=== PATIENT | male | born 1965 | race African-American/Black ===

== ENCOUNTER 2020-01-14 19:43 | Emergency (ER) | payer MEDICAID, SELFPAY ==
[2020-01-14 19:47] VITALS: BP 153/95; PULSE 69; RESP 18; TEMP 36.7; O2SAT 98
[2020-01-14 19:57] LABS: Glucose Point of Care 432 (65-105)
--- NOTE | 2020-01-14 20:05 | ED.RECABL ---
HPI - Recheck/Abnormal Lab/Rx General Chief Complaint: Recheck/Abnormal Lab/Rx Stated Complaint: High blood sugar Time Seen by Provider: 01/14/20 19:58 Source: RN notes reviewed History of Present Illness HPI narrative: Patient presents emergency room from home for hyperglycemia. Patient states his blood sugars have been running in the 400s for the past 3 days. is currently on [id number] twice daily she last took this morning. He states he does not have a regular primary care physician but it sounds like his medications are normally filled after he goes to different hospitals. He denies any recent illness denies any fevers or chills chest pain shortness of breath nausea vomiting or diarrhea. He states he has had frequent urination and aching in his joints Related Data Allergies Allergy/AdvReac Type Severity Reaction Status Date / Time No Known Allergies Allergy Verified 01/14/20 21:36 Review of Systems Review of Systems: Narrative: Gen.: Denies fevers or chills ENT: Denies congestion Respiratory: Denies shortness of breath or cough CV: Denies chest pain or palpitations GI: Denies abdominal pain nausea, emesis or diarrhea reports frequent urination Musculoskeletal: Denies back pain or muscle pain Neuro: Denies numbness, tingling, weakness or focal weakness Skin: Denies rash Endocrine: Lymph nodes hyperglycemia Except as documented, all other systems reviewed and negative FORMERLY [facility] Past Medical History Medical History (Updated 01/14/20 @ 22:35 by Sebas Goldstein DO) Diabetes mellitus Social History Social History (Updated 01/14/20 @ 20:06 by Sebas Goldstein DO) Smoking status: Never smoker Exam Narrative: Exam Narrative: APPEARANCE: No acute distress, nontoxic, resting in bed EYES: EOMI HEENT: Normocephalic, atraumatic, OMM RESPIRATORY: No respiratory distress Clear to auscultation bilaterally with no rhonchi wheezing or rales. CARDIOVASCULAR: Regular rate and rhythm without murmurs rubs or gallops. ABDOMINAL: Soft, nontender, nondistended, no rebound or guarding MUSCULOSKELETAl: Moves all extremities. No clubbing, cyanosis or edema. NEURO: Awake and alert. Following commands, speech normal, no focal deficits SKIN:: Warm, dry. No rashes lesions or abrasions PSYCHIATRIC: Normal affect/mood, Course Course Emergency Course: Patient states he is ready for discharge at this time. States he is not taking his evening metformin. Discussed with patient results of workup and diagnosis. Discussed need for follow-up with primary care, proper use of medication, and reasons to return to the emergency department. Patient understands and agrees to current treatment plan Vital Signs Vital signs: Vital Signs Temperature 98.0 F 01/14/20 19:47 Pulse Rate 69 01/14/20 19:47 Respiratory Rate 18 01/14/20 19:47 Blood Pressure 153/95 H 01/14/20 19:47 Pulse Oximetry 98 01/14/20 19:47 Temperature 98.0 F 01/14/20 19:47 Pulse Rate 50 L 01/14/20 21:29 Respiratory Rate 14 01/14/20 21:29 Blood Pressure 142/90 H 01/14/20 21:29 Pulse Oximetry 100 01/14/20 21:29 MDM - Recheck/Abnormal Lab/Rx Lab Data Result diagrams: 01/14/20 20:37 01/14/20 20:37 Labs: Lab Results 01/14/20 01/14/20 01/14/20 Range/Units 19:54 20:37 20:37 WBC 9.2 (4.5-10.0) K/mm3 RBC 4.57 L (4.6-6.20) M/mm3 Hgb 13.2 L (14.0-18.0) g/dL Hct 39.3 L (42.0-52.0) % MCV 86.0 (80-100) fl MCH 28.9 (26-34) pg MCHC 33.6 (32-36) g/dl RDW 13.2 (11.5-14.5) % Plt Count 170 (150-375) k/mm3 MPV 12.5 H (7.4-10.4) fl Immature Gran % (Auto) 0.4 (0-0.5) % Neut % (Auto) 52.1 (45.5-73.1) % Lymph % (Auto) 39.3 (18.3-44.2) % Zavala % (Auto) 6.1 (2.6-8.5) % Eos % (Auto) 1.3 (0-4.4) % Baso % (Auto) 0.8 (0.2-1.2) % Lymph # (Auto) 3.63 H (0.9-3.2) K/mm3 Zavala # (Auto) 0.6 (0.1-0.6) K/mm3 Eos # (Auto) 0.1 (0-0.3) K
[2020-01-14] MEDS: SODIUM CHLORIDE 0.9% IV 1,000 ML 999 ML IV CONT ×2 (20:29→21:29)
[2020-01-14 20:44] LABS: Basophils Absolute Auto 0.1 K/mm3 (0.0-0.1); Basophils Percent Auto 0.8 % (0.2-1.2); Eosinophils Absolute Auto 0.1 K/mm3 (0-0.3); Eosinophils Percent Auto 1.3 % (0-4.4); Hematocrit 39.3 % (42.0-52.0); Hemoglobin 13.2 g/dL (14.0-18.0); Immature Granulocyte Absolute 0.04 K/mm3 (0.00-0.031); Immature Granulocyte Percent A 0.4 % (0-0.5); Lymphocytes Absolute Auto 3.63 K/mm3 (0.9-3.2); Lymphocytes Percent Auto 39.3 % (18.3-44.2); Mean Corpuscular HGB Conc 33.6 g/dl (32-36); Mean Corpuscular Hemoglobin 28.9 pg (26-34); Mean Platelet Volume 12.5 fl (7.4-10.4); Monocytes Absolute Auto 0.6 K/mm3 (0.1-0.6); Monocytes Percent Auto 6.1 % (2.6-8.5); Neutrophils Absolute Auto 4.8 K/mm3 (1.3-6.7); Neutrophils Percent Auto 52.1 % (45.5-73.1); Platelet Count Result 170 k/mm3 (150-375); Red Blood Count 4.57 M/mm3 (4.6-6.20); Red Cell Distribution Width 13.2 % (11.5-14.5); White Blood Count 9.2 K/mm3 (4.5-10.0)
[2020-01-14 20:49] LABS: Add Urine Microscopic? YES; Appearance Urine Clear (Clear); Bilirubin Urine Negative (Negative); Blood Urine Negative (Negative); Color Urine Colorless (Yellow); Glucose Urine UA 3+ mg/dL (Negative); Ketones Urine Negative (Negative); Leukocyte Esterase Ur Negative LEU/UL (Negative); Mucus Urine Rare /lpf; Nitrate Urine Negative (Negative); Protein Urine Negative (Negative); RBC Urine 0-2 /hpf (0-2); Squamous Epithelial Cell Urine Rare /hpf (Few); Urobilinogen Urine Negative mg/dL (<2.0); WBC Urine 0-3 /hpf
[2020-01-14 20:51] LABS: Specific Grav Ur 1.031 (1.001-1.035)
[2020-01-14 20:57] LABS: Alanine Aminotransferase 37 U/L (4-50); Albumin Level 4.3 g/dL (3.5-5.1); Alkaline Phosphatase 76 U/L (38-126); Aspartate Amino Transferase 24 U/L (17-59); Bilirubin,Total 0.5 mg/dL (0.2-1.3); Blood Urea Nitrogen 11 mg/dL (9-20); Calcium 9.5 mg/dL (8.4-10.2); Carbon Dioxide 29 mmol/L (22-30); Chloride 97 mmol/L (98-107); Creatine Kinase 106 U/L (55-170); Estimated CRCL calculation 129 ml/min; Estimated Glomerular Filt Rate > 60; Glucose 462 mg/dL (75-110); Potassium 3.9 mmol/L (3.4-5.0); Sodium 134 mmol/L (137-145)
[2020-01-14 21:29] VITALS: BP 142/90; PULSE 50; RESP 14; O2SAT 100
--- NOTE | 2020-01-14 22:21 | PC.NURSE ---
Blood Glucose is 375 at 22:21
[2020-01-14 22:23] LABS: Glucose Point of Care 375 (65-105)
[2020-01-14 23:00] VITALS: BP 147/98; PULSE 58; RESP 18; O2SAT 100
[2020-01-14] MEDS: metFORMIN HCL 500 MG TABLET 1000 MG PO (23:03)
== END 2020-01-14 23:05 | disposition home or self-care (01) ==
PROVIDERS: Emergency Provider Emergency Medicine
DX: E11.65 Type 2 diabetes mellitus with hyperglycemia (principal); Z79.84 Long term (current) use of oral hypoglycemic drugs
CPT/HCPCS: 36415; 80053; 81001; 82550; 82948; 85025; 96360; 96361; 99283; A9270; J7030